=== PATIENT | male | born 1980 | race Caucasian/White ===

== ENCOUNTER → 2019-08-24 | Outpatient (CLI) | payer OTHER ==
--- NOTE | 2019-08-24 17:41 | XR ---
EXAMINATION TYPE: XR shoulder complete RT DATE OF EXAM: 08/24/2019 COMPARISON: NONE HISTORY: Shoulder pain TECHNIQUE: 3 views FINDINGS: There is no fracture nor dislocation. Joint spaces are normal. There are no pathologic calc ifications. IMPRESSION: Negative right shoulder exam.
== END | disposition home or self-care (01) ==
LOC: RADXRMAIN 17:12
PROVIDERS: ATTEND Emergency Medicine
DX: S46.811A Strain of other muscles, fascia and tendons at shoulder and upper arm level, right arm, initial encounter (principal)

== ENCOUNTER → 2019-11-28 | Day surgery (SDC) | payer OTHER ==
[2019-11-23 15:31] VITALS: BMI 30.5
--- NOTE | 2019-11-27 11:01 | HP ---
HISTORY AND PHYSICAL CHIEF COMPLAINT: Right shoulder pain. 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 He started having pain when doing a lot of overhead work. He has tried therapy in addition to an injection with persistent pain with overhead activity and at night. He has been working with restrictions. He denies previous problems. PAST MEDICAL HISTORY: Negative. PAST SURGICAL HISTORY: Negative. CURRENT ALLERGIES: Anti-inflammatories. He denies drug allergies. FAMILY HISTORY: Negative. SOCIAL HISTORY: Significant for chewing tobacco use. 16 POINT REVIEW OF SYSTEMS: Otherwise reviewed and is noncontributory. PHYSICAL EXAMINATION: On examination, the patient is approximately 6 foot tall, 230 pounds of endomorphic habitus. HEENT: Exam is nonfocal. Neck is supple. On examination of the right shoulder, he is tender about the anterior subacromial space, acromioclavicular joint, and bicipital groove. He has moderate subacromial crepitus. Active range of motion of the right shoulder. Forward elevation 150 degrees, external rotation with arm at side 55 degrees, internal rotation to L2. Motor strength is 5-/5 for external rotation with the arm at side, 4+/5 for abduction. Impingement test is positive. Neer test and Speed tests are positive. He has pain with cross-body adduction. His distal neurovascular exam appears to be intact in the right upper extremity. MRI report 09/10/2019 of the right shoulder shows evidence of a superior labral tear along with rotator cuff tendinosis and increased signal involving the distal clavicle. IMPRESSION: 1. Right shoulder impingement with rotator cuff tendinosis versus partial thickness tear. 2. Possible SLAP lesion right shoulder. 3. Right acromioclavicular synovitis/degenerative joint disease. RECOMMENDATIONS: I talked to the patient regarding his condition along with treatment options. At this point, he remains quite symptomatic despite conservative measures. After thorough discussion, he opts to proceed with surgery. We will plan to proceed with arthroscopic evaluation with probable subacromial decompression, rotator cuff debridement versus repair, possible biceps tenotomy and distal clavicular resection. We will likely perform that as an outpatient procedure. Risks and benefits were discussed at length in layman's terms. MMODL / IJN: [id number] /
[~2019-11-28] MED LIST: DEXAMETHASONE SOD PHOSPHATE 10 MG/ML 1 ML VIAL IV ONE; DEXAMETHASONE SOD PHOSPHATE 4 MG/ML 1 ML VIAL ONE; GLYCOPYRROLATE 0.2 MG/ML 2 ML VIAL ONE; HYDROmorphone 0.5 MG/0.5 ML SYRINGE IVP PRN; LACTATED RINGERS 1,000 ML IV ONE; LACTATED RINGERS 1,000 ML IV SCH; LIDOCAINE 1% 20 ML VIAL (10MG/ML) FOR IV START INTRADERMA PRN; LIDOCAINE 1% INJ 10MG/ML (20 ML MDV) ONE; MIDAZOLAM 2 MG/2 ML VIAL IV PRN; MIDAZOLAM 2 MG/2 ML VIAL IVP ONE; MIDAZOLAM 2 MG/2 ML VIAL ONE; NEOSTIGMINE 1 MG/ML 10 ML VIAL ONE; ONDANSETRON 4 MG/2 ML VIAL IVP ONE; PROPOFOL 10 MG/ML 20 ML VIAL IV ONE; ROCURONIUM BROMIDE 10 MG/ML 10 ML VIAL IV ONE; ROPIVACAINE 5 MG/ML 30 ML VIAL ONE; SCOPOLAMINE 1.5MG/72HR PATCH TRANSDERM ONE; SUCCINYLCHOLINE CHLORIDE 100 MG/5 ML SYR IV ONE; fentaNYL (PF) 50 MCG/ML 2 ML AMP ONE
[2019-11-28 09:49] VITALS: RESP 16
--- NOTE | 2019-11-28 14:11 | P.OP ---
Date of Procedure: 11/28/19 Preoperative Diagnosis: Right shoulder impingement/rotator cuff tendinitis Postoperative Diagnosis: Same in addition to partial thickness tear bursal surface rotator cuff, type I superior labral tear Procedure(s) Performed: Right shoulder arthroscopic superior labral debridement/subacromial decompression/rotator cuff debridement Anesthesia: TREVOR, [facility] Surgeon: Gregg Rojas Senior Tax Analyst #1: Edilson Hayes Estimated Blood Loss (ml): 10 Pathology: none sent Condition: stable Disposition: PACU Indications for Procedure: The patient is a 39-year-old [id number] gentleman who presents after injuring his right shoulder several months ago with persistent pain despite conservative treatment. A discussion of the risks and benefits of operative intervention versus continued conservative measures was made with patient. He opted to proceed with surgery. Operative risks to include infection, neurovascular injury, development of blood clots, possible incomplete resolution of symptoms, possible worsening symptoms and need for subsequent procedures was discussed. Informed consent was obtained. Operative Findings: As below Description of Procedure: The patient was brought to the operating room, and after induction of general anesthesia was placed in a beachchair position. A preoperative interscalene block was placed for postoperative analgesia. I examined the right shoulder. There was no gross block to passive motion or gross glenohumeral instability. The right upper extremity was prepped and draped in normal fashion. The bony outlines the acromion, distal clavicle, and coracoid process were outlined with a skin marker. The glenohumeral joint was inflated with 50 mL of saline utilizing a spinal needle from posterior approach. A posterior portal was made through a 5 mm skin incision 1 cm medial and inferior to the posterior lateral border time. A blunt trocar was used to easily into the joint. Diagnostic arthroscopy was performed. An anterior portal was made just lateral to the coracoid process entering the joint above the subscapularis tendon. The subscapularis tendon appeared to be intact. Anterior labrum was intact. The inferior recess was inspected. The posterior labrum was intact. A type I superior labral tear was noted and this was debrided back to stable base with a motorized shaver. The remaining anchor was intact. The intra-articular portion the biceps appeared intact. On inspection the rotator cuff[]. A lateral portal was made 2 centimeters inferior to the anterior lateral border of the acromion. The soft tissue on the undersurface of the acromion was debrided with a motorized shaver and electrocautery clearly defining the anterior medial and lateral borders as well as the distal clavicle. An anterior inferior acromioplasty was performed with a motorized christin starting anterolateral, then extending this posteriorly, then extending this medially. I converted to a flat acromion and this was verified in the posterior and lateral viewing portals. The coracoacromial ligament was detached from the anterior acromion with electrocautery. The rotator cuff was inspected on the bursal surface and a partial thickness tear involving the supraspinatus was noted involving proximal 10-15% of the tendon thickness. This was debrided back to stable base with a motorized shaver. The remaining rotator cuff was stable and intact. Significant bursal tissue was excised shaver. The arthroscope was then removed. The portals were closed with simple 3-0 nylon sutures. A sterile dressing was applied in addition to a sling. The patient was then awoken from general anesthesia and transferred to recovery room in good condition. Blood loss was estimated at 10 mL. No complications were incurred. Sponge and needle counts w ere correct in the case. Brando POOL assisted and the major components of the case to include arm positioning and decompression.
[2019-11-28 14:12] VITALS: TEMP 97
--- NOTE | 2019-11-28 14:38 | P.ANPRN ---
Procedure Note - Anesthesia - Nerve Block Performed Right Interscalene Single Time Out Performed: Yes Date of Procedure: 11/28/19 Procedure Start Time: : Procedure Stop Time: Location of Patient: PreOp Indication: Acute Post-Operative Pain, Requested by Surgeon Sedation Type: Sedate with meaningful contact maintained Preparation: Sterile Prep Position: Supine Needle Types: Pajunk Needle Gauge: 21 Ultrasound used to visualize needle placement: Yes Ultrasound used to observe medication spread: Yes Blood Aspirated: No Pain Paresthesia on Injection Noted: No Resistance on Injection: Normal Image Stored and Saved: Yes Events: Uneventful and Well Tolerated (ropi .5% 30cc plus dexamethasone 4mg)
[2019-11-28 15:20] VITALS: BP 133/79; PULSE 60
== END | disposition home or self-care (01) ==
LOC: OR 09:21
PROVIDERS: ATTEND Orthopaedic Surgery
DX: M75.41 Impingement syndrome of right shoulder (principal); S46.011A Strain of muscle(s) and tendon(s) of the rotator cuff of right shoulder, initial encounter; X50.0XXA Overexertion from strenuous movement or load, initial encounter; Z72.0 Tobacco use; Z88.8 Allergy status to other drugs, medicaments and biological substances
CPT/HCPCS: 64415; 76942; 29822; 29826; J2250; J1100 ×2; J2710; J0690; J2405; J2001; J3010; J2795; J0330; J2704